=== PATIENT | male | born 1970 | race African-American/Black ===

== ENCOUNTER → 2021-04-24 | Outpatient (CLI) | payer BC ==
--- NOTE | 2021-04-24 12:33 | KCIC ---
EXAM: Right thumb, 3 views. HISTORY: Pain. COMPARISON: None. FINDINGS: 3 views of the right thumb are obtained. There is no fracture, dislocation or subluxation. There is no lytic or sclerotic osseous lesion. There is no osseous erosion. There is no foreign body. IMPRESSION: No acute osseous finding. Electronically signed by: Nay Pinedo MD (04/24/2021 12:30 PM) [id number]
== END ==
LOC: KCIC 11:44
PROVIDERS: ATTEND Family Medicine
DX: M79.644 Pain in right finger(s) (principal)
CPT/HCPCS: 73140